=== PATIENT | male | born 1980 | race Caucasian/White ===

== ENCOUNTER 2024-02-27 16:39 | Outpatient (CLI) | payer BC, SELFPAY ==
[2024-02-27 19:10] LABS: HAV RESULT Negative (Negative); HIV 1/2 Ab P24 Ag Result Negative (Negative); Hepatitis B Core IgM Result Negative (Negative); Hepatitis B Surface Antigen Negative (Negative); Hepatitis C Virus Antibody Negative (Negative)
== END 2024-02-27 16:40 | disposition home or self-care (01) ==
PROVIDERS: PCP Family Medicine; Visit Provider Nurse Practitioner Family
DX: T14.8XXA Other injury of unspecified body region, initial encounter (principal); W50.3XXA Accidental bite by another person, initial encounter
CPT/HCPCS: 36415; 80074; 86703; G0432

== ENCOUNTER 2024-11-01 13:45 | Emergency (ER) | payer BC, SELFPAY ==
[2024-11-01 13:55] VITALS: BP 112/68; PULSE 96; RESP 16; TEMP 37.4; O2SAT 98
--- NOTE | 2024-11-01 14:10 | ED_ITS ---
HPI - URI/Sore Throat General Chief Complaint: Upper Respiratory Infection Stated Complaint: bodyaches,tired,[place] Time Seen by Provider: 11/01/24 14:10 Source: patient, RN notes reviewed and old records reviewed Mode of arrival: ambulatory Limitations: no limitations History of Present Illness HPI Narrative: Patient presents with complaints of flu-like symptoms began 2-3 days ago. He has been taking cough medication for his symptoms with poor relief. He voices no other concerns or complaints Related Data Allergies Allergy/AdvReac Type Severity Reaction Status Date / Time No Known Allergies Allergy Verified 11/01/24 13:49 Review of Systems Review of Systems: All systems reviewed & are unremarkable except as noted in HPI and below Constitutional: Constitutional: Reports no additional constitutional complaints, Reports body ache(s), Reports fever(s) and Reports lethargy ENT: Reports system reviewed and no additional complaints, except as documented, Reports headache(s), Reports nasal congestion, Reports nasal discharge and Reports nasal obstruction Cardiovascular: Cardiovascular: Reports no additional cardiovascular compla ints Respiratory: Respiratory: Reports no additional respiratory complaints and Reports cough Gastrointestinal: Gastrointestinal: Reports no additional gastrointestinal complaints PMFSH Past Medical History Medical History Anxiety BMI 23.0-23.9, adult BMI 25.0-25.9,adult High triglycerides Surgical History Surgical History History of removal of Port-a-Cath Family History Family History Father Heart disease Diabetes mellitus Hypertension Mother Hypertension Thyroid activity decreased Sibling Pancreatic cancer Social History Social History Years smoked: 5 Smoking status: Current some day smoker (a cigarette every once in a while. Does not smoke often. Plans to just quit. 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 There is no relevant family history pertinent to the patient complaint. Exam Const: General: cooperative, no acute distress, alert and awake Orientation/consciousness: oriented to person, oriented to place and oriented to time HENMT: Head: normal to inspection Mouth: Yes moist mucous membranes Resp: Effort & Inspection: normal respiratory effort and able to speak in comp lete sentences Auscultation: clear to auscultation bilaterally, no crackles, no rales, no rhonchi and no wheezes Cardio: Palpation: normal PMI Rate: regular rate Rhythm: regular rhythm Heart sounds: S1 normal heart sound present and S2 normal heart sound present Neuro: General: oriented to person, oriented to place and oriented to time Cranial nerves: Yes CN's II-XII intact bilaterally Psych: Appearance: grossly normal Thought process: Normal thought process present Insight: Good insight present (Psych) Judgement: Good judgement present (Psych) Course Course Level of Care: Express Care Visit Vital Signs Vital signs: Vital Signs Temperature 99.3 F 11/01/24 13:55 Pulse Rate 96 11/01/24 13:55 Respiratory Rate 16 11/01/24 13:55 Blood Pressure 112/68 11/01/24 13:55 Pulse Oximetry 98 11/01/24 13:55 Oxygen Delivery Room Air 11/01/24 13:55 Temperature 99.3 F 11/01/24 13:55 Pulse Rate 96 11/01/24 13:55 Respiratory Rate 16 11/01/24 13:55 Blood Pressure 112/68 11/01/24 13:55 Pulse Oximetry 98 11/01/24 13:55 Oxygen Delivery Room Air 11/01/24 13:55 Reviewed MDM - URI/Sore Throat MDM Narrative Medical decision making narrative: Influenza a positive. Supportive care measures discussed with this nontoxic appearing patient. Work note provided. Discharge instructions reviewed with patient, as well as provided in writing per nursing staff. The instructions also include specific and strict return/GO TO THE ER as well as f/u information. All questions have been answered, and the patient deny any further questions with discharge and discharge plan. Some parts of this dictation were generated by voice recognition software and may contain typographical and/or grammatical inaccuracies. Differential Diagnosis Differential diagnosis: Likely upper respiratory infection, otitis media, viral infection and influenza Medical Records Attestation: I reviewed the patient's medical records. Lab Data Attestation: I reviewed the patient's lab results. Discharge Plan Discharge Clinical Impression: Influenza Patient Disposition: Home, Self-Care Condition: Stable Instructions: Antibiotic Form, Influenza (ED) Patient Language: Luxembourgish Prescriptions: New ibuprofen 800 mg tablet 800 mg PO TID PRN (Reason: pain) Qty: 30 0RF benzonatate 200 mg capsule 200 mg PO TID PRN (Reason: cough) Qty: 30 0RF No Action sertraline 50 mg tablet 50 mg PO DAILY Qty: 30 6RF dextroamphetamine-amphetamine [Adderall XR] 10 mg capsule,extended release 24hr 20 mg PO DAILY Qty: 60 0RF Rx Instructions: remaining Rx that was NOT dispensed with last Follow-up/Referrals: Raffaele Panchal MD [Primary Care Provider] - 2 Weeks Stand Alone Forms: Work/School Release IP Time of Disposition: 14:20
[2024-11-01 14:21] LABS: EDCOVIDSCREEN Negative (Negative); EDINFLUASCREEN Positive (Negative); EDINFLUBSCREEN Negative (Negative)
== END 2024-11-01 14:25 | disposition home or self-care (01) ==
PROVIDERS: Emergency Provider Nurse Practitioner Family; PCP Family Medicine
DX: J10.1 Influenza due to other identified influenza virus with other respiratory manifestations (principal); Z20.822 Contact with and (suspected) exposure to COVID-19; Z72.0 Tobacco use; E78.1 Pure hyperglyceridemia; F41.9 Anxiety disorder, unspecified
CPT/HCPCS: 87426; 87804; 99213; G0463

== ENCOUNTER 2024-11-04 11:42 | Outpatient (CLI) | payer BC, SELFPAY ==
--- NOTE | ~2024-11-04 | XR_ITS ---
Clinical Indication: Influenza PA and lateral views of the chest: Comparison: None Findings: The lungs are clear, without evidence of focal consolidation or pleural effusion. Probable COPD. Cardiomediastinal silhouette is within normal limits. Suspected coarsely calcified lesions in t he anterior mediastinal region. Impression: Clear lungs. Probable COPD. Suspected coarse calcifications in the anterior mediastinum, possibly calcified lymph nodes. Reviewed, dictated and finalized at location . [employer] Impression: Clear lungs. Probable COPD. Suspected coarse calcifications in the anterior mediastinum, possibly calcified lymph nodes.
== END 2024-11-04 11:43 | disposition home or self-care (01) ==
PROVIDERS: PCP Family Medicine; Visit Provider Nurse Practitioner Adult Health
DX: J11.1 Influenza due to unidentified influenza virus with other respiratory manifestations (principal); R91.8 Other nonspecific abnormal finding of lung field
CPT/HCPCS: 71046

== ENCOUNTER 2025-03-24 19:33 | Emergency (ER) | payer BC, SELFPAY ==
--- NOTE | ~2025-03-24 | CT_ITS ---
CT lumbar spine wo con Ordering provider: Cayla Cabrales PA-C History: 44 years Male with . low back pain radiating down right leg . Comparison: None. Technique: CT lumbar spine without contrast. Automated exposure control and iterative reconstruction technique were employed. The dose-length product was 416.77 mGy-cm. FINDINGS: VERTEBRAE: Normal height and alignment. No subluxation or visible acute fracture. Sclerotic lesion se en in the right 11th rib and 11th thoracic vertebra in the area of the left pedicle. Smaller lesion s een in the right 12th rib Follow-up advised. DISC SPACES: Well maintained. T12-L1: No stenosis. L1-L2: No stenosis. L2-L3: No stenosis. Diffuse disc bulge more to the right side with narrowing of the right foramen an d highly suggestive root compression. L3-L4: No stenosis. Diffuse disc bulge with narrowing of the left foramina and highly suggestive nerv e root compression L4-L5: No stenosis. Diffuse disc bulge with slight narrowing of the foramina bilaterally no definite root compression L5-S1: No stenosis. PARASPINOUS SOFT TISSUES: Normal. IMPRESSION: No acute osseous abnormality. Diffuse disc bulge more to the right side at the level of L2-L3 with narrowing of the right foramina and highly suggestive nerve root compression. Diffuse disc bulge at the level of L3-L4 more to the left with narrowing of the left foramina and hig hly suggestive nerve root compression. MRI evaluation is advised. Reviewed, dictated and finalized at location A. IMPRESSION: No acute osseous abnormality. Diffuse disc bulge more to the right side at the level of L2-L3 with narrowing of the right foramina and highly suggestive nerve root compression. Diffuse disc bulge at the level of L3-L4 more to the left with narrowing of the left foramina and highly suggestive nerve root compression. MRI evaluation is advised.
[2025-03-24 19:36] VITALS: BP 150/86; PULSE 97; RESP 18; TEMP 36.5; O2SAT 98
[2025-03-24] MEDS: HYDROcodone/acetaminophen (*CRX) 5-325 MG TABLET 1 TAB PO (21:06)
--- NOTE | 2025-03-24 21:37 | ED_ITS ---
HPI - Back Pain/Injury General Chief Complaint: Back Pain/Injury Stated Complaint: LOW BACK PAIN RADIATING DOWN R LEG Time Seen by Provider: 03/24/25 21:37 Focused HPI: This is a 44-year-old male that presents to the emergency department for low back pain. Reports he stood up when he was at work and felt sudden onset low back discomfort. Radiation down his right leg. Does report history of sciatic nerve problems. He was at his chiropractor this afternoon without relief. He took some anti-inflammatories earlier today as well. Presents for further evaluation/management. Denies saddle anesthesia, bowel/bladder incontinence. GENERAL: Well-appearing, well-nourished, and in no acute distress. HEAD: Normocephalic, atraumatic. CHEST: Clear to auscultation. ?No respiratory distress. HEART: Regular rate and rhythm.? NEURO: ?Alert and oriented x3. EXTREMITIES: Normal DP pulses. Strength equal in bilateral lower extremities ( 5/5) Patient screened in triage and initial orders placed.? ?Additional care and disposition to be based upon?diagnostic testing and treatment. Related Data Allergies Allergy/AdvReac Type Severity Reaction Status Date / Time No Known Allergies Allergy Verified 03/24/25 19:34 Review of Systems Review of Systems: All systems reviewed & are unremarkable except as noted in HPI and below PMFSH Past Medical History Medical History High triglycerides Anxiety BMI 23.0-23.9, adult BMI 25.0-25.9,adult Surgical History Surgical History History of removal of Port-a-Cath Family History Family History Father Heart disease Diabetes mellitus Hypertension Mother Hypertension Thyroid activity decreased Sibling Pancreatic cancer Social History Social History Years smoked: 5 Smoking status: Former smoker (a cigarette every once in a while. Does not smoke often. Plans to just quit. 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 HEAD: Normocephalic, atraumatic. EYES: EOMI. CHEST: Clear to auscultation. No respiratory distress. No wheezes rales or rhonchi HEART: Regular rate and rhythm. No murmur heard. Normal peripheral pulses. EXTREMITIES: Normal range of motion. No edema. Normal DP pulse. Strength equal in bilateral lower extremities (5/5) SKIN: Warm, dry, no rash. NEURO: No focal deficits. Alert and oriented x3. PSYCH: Normal mood and affect Course Vital Signs Vital signs: Vital Signs Temperature 97.7 F 03/24/25 19:36 Pulse Rate 97 03/24/25 19:36 Respiratory Rate 18 03/24/25 19:36 Blood Pressure 150/86 H 03/24/25 19:36 Pulse Oximetry 98 03/24/25 19:36 Oxygen Delivery Room Air 03/24/25 19:36 Temperature 97.7 F 03/24/25 19:36 Pulse Rate 76 03/24/25 22:37 Respiratory Rate 16 03/24/25 22:37 Blood Pressure 121/80 03/24/25 22:37 Pulse Oximetry 97 03/24/25 22:37 Oxygen Delivery Room Air 03/24/25 22:37 MDM - Back Pain/Injury MDM Narrative Medical decision making narrative: Patient presents to the emergency department for low back pain with radiation down the right leg. Patient is neurologically intact. Denies any saddle anesthesia, bowel/bladder incontinence. No acute osseous abnormalities on CT lumbar spine. He does have several bulging discs. Patient updated on his workup and agrees with plan of care. He is to follow up with primary provider for further evaluation. He is given warnings to return to the ER Differential Diagnosis Differential diagnosis: Likely lumbar radiculopathy, sciatica and strain of lumbar region Imaging Data Radiologist's impression: ITS Impressions Lumbar Spine CT 03/24/25 23:38 IMPRESSION: No acute osseous abnormality. Diffuse disc bulge more to the right side at the level of L2-L3 with narrowing of the right foramina and highly suggestive nerve root compression. Diffuse disc bulge at the level of L3-L4 more to the left with narrowing of the left foramina and highly suggestive nerve root compression. MRI evaluation is advised. Critical Care Time Critical Care Time Critical Care Time: No Discharge Plan Discharge Clinical Impression: Acute lumbar radiculopathy Patient Disposition: Home Condition: Stable Instructions: Lumbar Radiculopathy (ED) Additional Instructions: Return to the ER if you experience weakness, numbness, bowel/bladder incontinence, or any other symptoms that are concerning to you Rest, use ice/heat, take anti-inflammatories (Aleve, Ibuprofen, Naproxen, etc) or Tylenol as needed for pain as well as muscle relaxer (Flexeril) as needed for pain. Muscle relaxers can make you drowsy, do not drive if you take this. Take steroid taper as prescribed Follow up with your primary care doctor Patient Language: Belarusian Prescriptions: New methylprednisolone 4 mg tablets,dose pack See Rx Instructions .ROUTE .COMPLEX Qty: 21 0RF Rx Instructions: orally per package directions cyclobenzaprine 10 mg tablet 10 mg PO TID PRN (Reason: muscle spasm) Qty: 14 0RF No Action ibuprofen 800 mg tablet 800 mg PO TID PRN (Reason: pain) Qty: 30 0RF benzonatate 200 mg capsule 200 mg PO TID PRN (Reason: cough) Qty: 30 0RF Airsupra 90-80 mcg/actuation HFA aerosol inhaler 2 inh inhalation 6XD PRN (Reason: shortness of breath) Qty: 32.1 3RF azithromycin 250 mg tablet See Rx Instructions PO .COMPLEX Qty: 6 0RF Rx Instructions: For 250 mg dose pack: take 500 mg today (day 1), then 250 mg for 4 days (days 2-5) PO sertraline 50 mg tablet 50 mg PO DAILY Qty: 30 6RF dextroamphetamine-amphetamine [Adderall XR] 10 mg capsule,extended release 24hr 20 mg PO DAILY Qty: 60 0RF Follow-up/Referrals: Raffaele Panchal MD [Primary Care Provider] -
[2025-03-24 22:37] VITALS: BP 121/80; PULSE 76; RESP 16; O2SAT 97
[2025-03-24] MEDS: diazePAM INJ (*CRX) 10 MG/2 ML SYRINGE 5 MG IM (22:54)
[2025-03-25 00:08] VITALS: BP 122/87; PULSE 79; RESP 14; TEMP 36.7; O2SAT 97
[2025-03-25] MEDS: ACETAMINOPHEN 325 MG TABLET 650 MG PO (00:29)
[2025-03-25] MEDS: KETOROLAC 30 MG/ML VIAL (*BKC) IM (00:29)
[2025-03-25] MEDS: oxyCODONE HCL (*CRX) 5 MG TAB IR PO (01:18)
== END 2025-03-25 02:03 | disposition home or self-care (01) ==
PROVIDERS: Emergency Provider Physician Assistant; PCP Family Medicine
DX: M51.16 Intervertebral disc disorders with radiculopathy, lumbar region (principal); F41.9 Anxiety disorder, unspecified; Z87.891 Personal history of nicotine dependence; Z79.899 Other long term (current) drug therapy
CPT/HCPCS: 72131; 96372; 99284; A9270; J1885; J3360